=== PATIENT | male | born 1950 | race Caucasian/White ===

== ENCOUNTER → 2017-07-22 | Outpatient (CLI) | payer MEDICARE, OTHER ==
[2011-12-04 15:52] VITALS: BP 171/84
[~2017-07-22] MED LIST: FOLTX PO; LISINOPRIL AND1 TAB PO; LOVASTATIN40 MG PO; NIACIN500 M3 PO; ST. JOSEPH81 M2 PO; SUPER EPA 2002000 MG PO
== END ==
LOC: LAB 08:47
DX: Z00.00 Encounter for general adult medical examination without abnormal findings (principal); Z23 Encounter for immunization; E78.5 Hyperlipidemia, unspecified; L72.3 Sebaceous cyst

== ENCOUNTER → 2017-10-21 | Outpatient (CLI) | payer MEDICARE, OTHER ==
[2011-12-04 15:52] VITALS: BP 171/84
[2017-10-21 08:48] LABS: ALBUMIN 4.3 g/dL (3.5-5.0); BUN/CREATININE RATIO 20.7 (6.0-26.0); CALCIUM 9.7 mg/dL (8.4-10.2); TOTAL BILIRUBIN 0.8 mg/dL (0.2-1.3); TOTAL PROTEIN 8.2 g/dL (6.3-8.2)
== END ==
LOC: LAB 08:20
PROVIDERS: Family Medicine
DX: Z00.00 Encounter for general adult medical examination without abnormal findings (principal); Z23 Encounter for immunization; E78.5 Hyperlipidemia, unspecified; L72.3 Sebaceous cyst

== ENCOUNTER → 2018-10-21 | Outpatient (CLI) | payer MEDICARE, OTHER ==
[2011-12-04 15:52] VITALS: BP 171/84
[2018-10-21 08:49] LABS: ALBUMIN 4.4 g/dL (3.5-5.0); CALCIUM 9.7 mg/dL (8.4-10.2); POTASSIUM 4.5 mmol/L (3.6-5.0); TOTAL BILIRUBIN 0.7 mg/dL (0.2-1.3); TOTAL PROTEIN 7.6 g/dL (6.3-8.2)
== END ==
LOC: LAB 08:14
PROVIDERS: Family Medicine
DX: Z12.12 Encounter for screening for malignant neoplasm of rectum (principal); Z00.00 Encounter for general adult medical examination without abnormal findings; E78.2 Mixed hyperlipidemia; Z82.49 Family history of ischemic heart disease and other diseases of the circulatory system

== ENCOUNTER → 2019-10-29 | Outpatient (CLI) | payer MEDICARE, OTHER ==
[2011-12-04 15:52] VITALS: BP 171/84
[2019-10-29 10:20] LABS: ALBUMIN 4.2 g/dL (3.4-4.8); POTASSIUM 4.6 mmol/L (3.5-5.1)
[2019-10-29 10:22] LABS: TOTAL PROTEIN 7.5 g/dL (6.2-8.1)
[2019-10-29 10:24] LABS: TOTAL BILIRUBIN 0.9 mg/dL (0.2-1.2)
== END ==
LOC: LAB 07:59
PROVIDERS: Family Medicine
DX: Z00.00 Encounter for general adult medical examination without abnormal findings (principal); Z12.5 Encounter for screening for malignant neoplasm of prostate; Z12.12 Encounter for screening for malignant neoplasm of rectum; E78.2 Mixed hyperlipidemia; Z82.49 Family history of ischemic heart disease and other diseases of the circulatory system

== ENCOUNTER → 2019-11-18 | Outpatient (CLI) | payer MEDICARE, OTHER ==
[2011-12-04 15:52] VITALS: BP 171/84
== END ==
LOC: LAB 14:25
DX: Z12.11 Encounter for screening for malignant neoplasm of colon (principal)

== ENCOUNTER → 2020-12-06 | Outpatient (CLI) | payer MEDICARE, OTHER ==
[2011-12-04 15:52] VITALS: BP 171/84
[2020-12-06 12:47] LABS: ALBUMIN 4.3 g/dL (3.4-4.8)
[2020-12-06 12:48] LABS: CALCIUM 9.5 mg/dL (8.3-10.5)
[2020-12-06 12:50] LABS: TOTAL PROTEIN 7.4 g/dL (6.2-8.1)
[2020-12-06 12:51] LABS: TOTAL BILIRUBIN 0.9 mg/dL (0.2-1.2)
== END ==
LOC: LAB 12:18
PROVIDERS: Family Medicine
DX: Z12.5 Encounter for screening for malignant neoplasm of prostate (principal); E78.2 Mixed hyperlipidemia

== ENCOUNTER → 2022-01-20 | Outpatient (CLI) | payer MEDICARE, OTHER ==
[2022-01-20 09:54] LABS: ALBUMIN 4.1 g/dL (3.4-4.8); POTASSIUM 4.8 mmol/L (3.5-5.1)
[2022-01-20 09:55] LABS: CALCIUM 10.1 mg/dL (8.3-10.5)
[2022-01-20 09:57] LABS: TOTAL PROTEIN 7.4 g/dL (6.2-8.1)
[2022-01-20 09:58] LABS: TOTAL BILIRUBIN 0.9 mg/dL (0.2-1.2)
== END ==
LOC: LAB 08:11
PROVIDERS: Family Medicine
DX: Z12.5 Encounter for screening for malignant neoplasm of prostate (principal); E78.2 Mixed hyperlipidemia

== ENCOUNTER → 2022-02-07 | Outpatient (CLI) | payer MEDICARE, OTHER | LOC: CARDREHAB 09:00 | DX: Z13.6 Encounter for screening for cardiovascular disorders (principal); I15.8 Other secondary hypertension; E78.2 Mixed hyperlipidemia | CPT/HCPCS: A9500 ==

== ENCOUNTER → 2022-05-12 | Outpatient (CLI) | payer MEDICARE, OTHER ==
[2022-05-12 09:04] LABS: ALBUMIN 4.1 g/dL (3.4-4.8)
[2022-05-12 09:12] LABS: DIRECT BILIRUBIN 0.3 mg/dL (0.0-0.5)
== END ==
LOC: LAB 08:15
PROVIDERS: Family Medicine
DX: Z00.00 Encounter for general adult medical examination without abnormal findings (principal); Z12.5 Encounter for screening for malignant neoplasm of prostate; Z13.6 Encounter for screening for cardiovascular disorders; E78.2 Mixed hyperlipidemia; I15.8 Other secondary hypertension

== ENCOUNTER → 2024-03-30 | Outpatient (CLI) | payer MEDICARE | LOC: LAB 08:40 | DX: E78.2 Mixed hyperlipidemia (principal) ==